=== PATIENT | female | born 1955 | race Caucasian/White ===

== ENCOUNTER 2019-12-31 14:11 | Inpatient (IN) | payer OTHER ==
[~2019-12-31] VITALS: Ht 165.1 cm; Wt 85.0 kg
[~2019-12-31 14:11] MED LIST: ATOR20TA86 PO; FLUT110HFA IH; FLUT16H NASAL; RINGERS SOLUTION,LACTATED 1,000 ML IV ONE
[2019-12-31] MEDS ORDERED: SUGAMMADEX SODIUM 200 MG/2 ML VIAL IVP ONE ×2 (14:12→18:40)
[2019-12-31] MEDS ORDERED: ONDANSETRON HCL 4 MG/2 ML VIAL IVP ONE (14:12)
[2019-12-31] MEDS ORDERED: LIDOCAINE/PF 2% 5 ML VIAL IM ONE (14:12)
[2019-12-31] MEDS ORDERED: FentaNYL CITRATE-PF 100 MCG/2 ML VIAL IVP ONE (14:12)
[2019-12-31] MEDS ORDERED: ALBUTEROL SULFATE HFA 90 MCG/PUFF 8 GM INHALER IH ONE (14:12)
[2019-12-31] MEDS ORDERED: KETAMINE HCL 50 MG/ML 10 ML VIAL IVP ONE (14:12)
[2019-12-31] MEDS ORDERED: SUCCINYLCHOLINE CHLORIDE 20 MG/ML 10 ML VIAL IVP ONE (14:12)
[2019-12-31] MEDS ORDERED: PROPOFOL 1% 20 ML VIAL IVP ONE (14:12)
[2019-12-31] MEDS ORDERED: MIDAZOLAM HCL 2 MG/2 ML VIAL IVP ONE (14:12)
[2019-12-31] MEDS ORDERED: VANCOMYCIN HCL 1 GM/VIAL ONE (14:25)
[2019-12-31] MEDS ORDERED: BACITRACIN 50,000 UNITS/VIAL ONE (14:25)
[2019-12-31] MEDS ORDERED: BUPIVACAINE HCL/PF 0.5% 30 ML VIAL ONE (14:25)
[2019-12-31] MEDS ORDERED: SODIUM CHLORIDE 0.9% 10 ML ONE (14:31)
[2019-12-31 14:54] LABS: GLUCOMETER DEV NAME(LOC) SDS.; GLUCOSE,POINT OF CARE 100 MG/DL (70-110)
[2019-12-31 15:14] LABS: COVID AG,FIA SOURCE NASOPHARYNGEAL
[2019-12-31] MEDS ORDERED: OxyCODONE HCL 5 MG IR TABLET PO PRN ×2 (15:15)
[2019-12-31] MEDS ORDERED: MAG HYDROX/AL HYDROX/SIMETH 30 ML SUSP UDCUP PO PRN (15:15)
[2019-12-31] MEDS ORDERED: ONDANSETRON HCL 4 MG/2 ML VIAL IVP PRN (15:15)
[2019-12-31] MEDS ORDERED: HYDROmorphone 2 MG/ML SYRINGE IVP PRN ×3 (15:15→17:15)
[2019-12-31] MEDS ORDERED: ZOLPIDEM TARTRATE 10 MG TABLET PO PRN (15:15)
[2019-12-31] MEDS ORDERED: BENZOCAINE/MENTHOL LOZENGE PO PRN (15:15)
[2019-12-31] MEDS ORDERED: FentaNYL CITRATE-PF 100 MCG/2 ML VIAL IVP PRN (17:15)
[2019-12-31] MEDS ORDERED: ACETAMINOPHEN 1000 MG/ISO-OSM 100 ML IV ONE (17:15)
[2019-12-31] MEDS ORDERED: MEPERIDINE-PF 25 MG/ML VIAL IVP PRN (17:15)
[2019-12-31] MEDS ORDERED: BUPIVACAINE LIPOSOME/PF 1.3%-13.3MG/ML SUSPENSION 20 ML VIAL INJ ONE (17:15)
[2019-12-31] MEDS ORDERED: RINGERS SOLUTION,LACTATED 1,000 ML IV ONE (18:40)
[2019-12-31] MEDS: OXYGEN THERAPY IH SCH (20:00)
[2019-12-31 21:00] VITALS: BP 135/65
[2019-12-31] MEDS: DOCUSATE SODIUM 100 MG CAPSULE PO SCH (21:03)
[2019-12-31] MEDS: CYCLOBENZAPRINE HCL 10 MG TABLET PO SCH (21:04)
[2019-12-31] MEDS: ACETAMINOPHEN 1000 MG/ISO-OSM 100 ML IV SCH (21:05)
[2019-12-31] MEDS ORDERED: ALBUTEROL SULFATE HFA 90 MCG/PUFF 8 GM INHALER IH PRN (22:30)
[2020-01-01 00:50] VITALS: BP 139/69
[2020-01-01] MEDS: OxyCODONE HCL/ACETAMINOPHEN 5-325 MG TABLET PO PRN ×3 (03:27→20:27)
[2020-01-01] MEDS: ACETAMINOPHEN 1000 MG/ISO-OSM 100 ML IV SCH ×3 (05:10→17:00)
[2020-01-01 07:03] LABS: BASOPHILS % (AUTO) 0.3 % (0.0-2.0); EOSINOPHILS % (AUTO) 0 % (1.0-6.0); HEMATOCRIT 31.4 % (36-46); HEMOGLOBIN 10.6 g/dL (12.0-16.0); LYMPHOCYTES # (AUTO) 0.9 K/uL (1.0-4.8); LYMPHOCYTES % (AUTO) 13.4 % (22.0-44.0); MEAN CORPUSCULAR HGB CONC 33.9 G/dL (31.0-37.0); MEAN CORPUSCULAR VOLUME 89 fL (80-100); MONOCYTES # (AUTO) 0.4 K/uL (0.1-1.0); NEUTROPHILS # (AUTO) 5.4 K/uL (1.8-7.7); NEUTROPHILS % (AUTO) 80.3 % (40.0-70.0); PLATELET COUNT (AUTO) 192 K/uL (150-450); RED BLOOD CELL COUNT(AUTO) 3.54 MIL/uL (4.00-5.20); RED CELL DISTRIBUTION WIDTH 13.7 % (11.5-14.5)
[2020-01-01 07:14] LABS: ANION GAP 8 mmol/L (8-16); CALCIUM, TOTAL 8.2 mg/dL (8.8-10.5); CARBON DIOXIDE 26 mmol/L (22-29); CHLORIDE 108 mmol/L (98-107); CREATININE 0.93 mg/dL (0.60-1.30); GLOMERULAR FILTR. RATE CALC > 60 mL/min (>60); GLUCOSE,RANDOM 136 mg/dL (70-110); POTASSIUM 3.9 mmol/L (3.5-5.1); SODIUM SERUM 142 mmol/L (136-145); UREA NITROGEN, BLOOD 17 mg/dL (7-18)
[2020-01-01] MEDS: OXYGEN THERAPY IH SCH (07:54)
[2020-01-01] MEDS ORDERED: SODIUM CHLORIDE 0.9% 100 ML ONE (07:54)
[2020-01-01] MEDS ORDERED: IOVERSOL 350 MG/ML 100 ML VIAL ONE (07:54)
[2020-01-01 08:26] VITALS: BP 126/55
[2020-01-01] MEDS: DOCUSATE SODIUM 100 MG CAPSULE PO SCH ×2 (08:53→20:27)
[2020-01-01] MEDS: CYCLOBENZAPRINE HCL 10 MG TABLET PO SCH ×3 (08:54→20:27)
[2020-01-01] MEDS: PANTOPRAZOLE SODIUM 40 MG DR TABLET PO SCH (12:17)
[2020-01-01 15:51] VITALS: BP 120/53
[2020-01-01 20:00] VITALS: BP 135/64
[2020-01-01] MEDS: ATORVASTATIN CALCIUM 20 MG TABLET PO SCH (20:27)
[2020-01-01 23:41] VITALS: BP 115/52
[2020-01-02 04:00] VITALS: BP 122/62
[2020-01-02] MEDS: OxyCODONE HCL/ACETAMINOPHEN 5-325 MG TABLET PO PRN ×2 (04:42→20:19)
[2020-01-02 06:51] LABS: BASOPHILS % (AUTO) 0.5 % (0.0-2.0); EOSINOPHILS % (AUTO) 2.3 % (1.0-6.0); HEMATOCRIT 29.3 % (36-46); HEMOGLOBIN 9.8 g/dL (12.0-16.0); LYMPHOCYTES # (AUTO) 1.1 K/uL (1.0-4.8); LYMPHOCYTES % (AUTO) 16.6 % (22.0-44.0); MEAN CORPUSCULAR HEMOGLOBIN 29.9 pg (26.0-34.0); MEAN CORPUSCULAR HGB CONC 33.5 G/dL (31.0-37.0); MEAN CORPUSCULAR VOLUME 89 fL (80-100); MONOCYTES # (AUTO) 0.7 K/uL (0.1-1.0); MONOCYTES % (AUTO) 9.6 % (2.0-9.0); NEUTROPHILS # (AUTO) 4.8 K/uL (1.8-7.7); PLATELET COUNT (AUTO) 161 K/uL (150-450); RED BLOOD CELL COUNT(AUTO) 3.28 MIL/uL (4.00-5.20); RED CELL DISTRIBUTION WIDTH 13.8 % (11.5-14.5)
[2020-01-02 06:52] LABS: ANION GAP 7 mmol/L (8-16); CALCIUM, TOTAL 8.1 mg/dL (8.8-10.5); CARBON DIOXIDE 26 mmol/L (22-29); CHLORIDE 107 mmol/L (98-107); CREATININE 0.74 mg/dL (0.60-1.30); GLOMERULAR FILTR. RATE CALC > 60 mL/min (>60); GLUCOSE,RANDOM 161 mg/dL (70-110); POTASSIUM 3.7 mmol/L (3.5-5.1); SODIUM SERUM 140 mmol/L (136-145); UREA NITROGEN, BLOOD 13 mg/dL (7-18)
[2020-01-02] MEDS: OXYGEN THERAPY IH SCH ×2 (08:00→20:32)
[2020-01-02 08:02] VITALS: BP 115/60
[2020-01-02] MEDS: DOCUSATE SODIUM 100 MG CAPSULE PO SCH ×2 (08:04→20:19)
[2020-01-02] MEDS: PANTOPRAZOLE SODIUM 40 MG DR TABLET PO SCH (08:04)
[2020-01-02] MEDS: CYCLOBENZAPRINE HCL 10 MG TABLET PO SCH ×3 (08:04→20:20)
[2020-01-02] MEDS: SODIUM CHLORIDE 0.9% 1,000 ML IV SCH (13:36)
[2020-01-02 15:30] VITALS: BP 144/74
[2020-01-02] MEDS ORDERED: ACETAMINOPHEN 325 MG TABLET PO PRN (15:30)
[2020-01-02 15:59] VITALS: BP 125/56
[2020-01-02 19:37] VITALS: BP 138/76
[2020-01-02] MEDS: ATORVASTATIN CALCIUM 20 MG TABLET PO SCH (20:20)
[2020-01-03] VITALS (7 sets, daily range): BP systolic 117–147; BP diastolic 64–94
[2020-01-03] MEDS: OxyCODONE HCL/ACETAMINOPHEN 5-325 MG TABLET PO PRN ×3 (00:38→19:56)
[2020-01-03 06:17] LABS: BASOPHILS % (AUTO) 0.3 % (0.0-2.0); EOSINOPHILS % (AUTO) 5.5 % (1.0-6.0); HEMATOCRIT 29.6 % (36-46); HEMOGLOBIN 9.9 g/dL (12.0-16.0); LYMPHOCYTES # (AUTO) 1.8 K/uL (1.0-4.8); LYMPHOCYTES % (AUTO) 26.4 % (22.0-44.0); MEAN CORPUSCULAR HEMOGLOBIN 29.9 pg (26.0-34.0); MEAN CORPUSCULAR HGB CONC 33.4 G/dL (31.0-37.0); MEAN CORPUSCULAR VOLUME 89 fL (80-100); MONOCYTES # (AUTO) 0.6 K/uL (0.1-1.0); MONOCYTES % (AUTO) 9.1 % (2.0-9.0); NEUTROPHILS % (AUTO) 58.7 % (40.0-70.0); PLATELET COUNT (AUTO) 158 K/uL (150-450); RED BLOOD CELL COUNT(AUTO) 3.32 MIL/uL (4.00-5.20); RED CELL DISTRIBUTION WIDTH 13.9 % (11.5-14.5)
[2020-01-03 06:28] LABS: ANION GAP 6 mmol/L (8-16); CALCIUM, TOTAL 8.3 mg/dL (8.8-10.5); CARBON DIOXIDE 28 mmol/L (22-29); CHLORIDE 107 mmol/L (98-107); CREATININE 0.75 mg/dL (0.60-1.30); GLOMERULAR FILTR. RATE CALC > 60 mL/min (>60); GLUCOSE,RANDOM 139 mg/dL (70-110); POTASSIUM 3.8 mmol/L (3.5-5.1); SODIUM SERUM 141 mmol/L (136-145); UREA NITROGEN, BLOOD 12 mg/dL (7-18)
[2020-01-03] MEDS: DOCUSATE SODIUM 100 MG CAPSULE PO SCH ×2 (07:51→20:59)
[2020-01-03] MEDS: PANTOPRAZOLE SODIUM 40 MG DR TABLET PO SCH (07:51)
[2020-01-03] MEDS: CYCLOBENZAPRINE HCL 10 MG TABLET PO SCH ×3 (07:51→21:00)
[2020-01-03] MEDS: SODIUM CHLORIDE 0.9% 1,000 ML IV SCH ×2 (09:47→16:39)
[2020-01-03] MEDS ORDERED: MAGNESIUM CITRATE 300 ML ORAL SOLUTION PO ONE (18:00)
[2020-01-03] MEDS: ATORVASTATIN CALCIUM 20 MG TABLET PO SCH (20:59)
[2020-01-04] MEDS: SODIUM CHLORIDE 0.9% 1,000 ML IV SCH (01:57)
[2020-01-04] MEDS: OxyCODONE HCL/ACETAMINOPHEN 5-325 MG TABLET PO PRN (04:12)
[2020-01-04 05:00] VITALS: BP 129/73
[2020-01-04 06:42] LABS: BASOPHILS % (AUTO) 0.5 % (0.0-2.0); EOSINOPHILS % (AUTO) 8.1 % (1.0-6.0); HEMATOCRIT 28.7 % (36-46); HEMOGLOBIN 9.6 g/dL (12.0-16.0); LYMPHOCYTES # (AUTO) 1.3 K/uL (1.0-4.8); LYMPHOCYTES % (AUTO) 19.3 % (22.0-44.0); MEAN CORPUSCULAR HGB CONC 33.5 G/dL (31.0-37.0); MEAN CORPUSCULAR VOLUME 90 fL (80-100); MONOCYTES # (AUTO) 0.4 K/uL (0.1-1.0); MONOCYTES % (AUTO) 6.6 % (2.0-9.0); NEUTROPHILS # (AUTO) 4.2 K/uL (1.8-7.7); NEUTROPHILS % (AUTO) 65.5 % (40.0-70.0); PLATELET COUNT (AUTO) 173 K/uL (150-450); RED CELL DISTRIBUTION WIDTH 13.5 % (11.5-14.5)
[2020-01-04 06:44] LABS: CREATININE 0.94 mg/dL (0.60-1.30); POTASSIUM 4.3 mmol/L (3.5-5.1)
[2020-01-04] MEDS: CYCLOBENZAPRINE HCL 10 MG TABLET PO SCH (08:00)
[2020-01-04] MEDS: OXYGEN THERAPY IH SCH (08:00)
[2020-01-04] MEDS: PANTOPRAZOLE SODIUM 40 MG DR TABLET PO SCH (08:01)
[2020-01-04] MEDS: DOCUSATE SODIUM 100 MG CAPSULE PO SCH (08:01)
[2020-01-04 08:04] VITALS: BP 129/67
[2020-01-04] MEDS ORDERED: MULTIVITAMINS WITH MINERALS, THERAPEUTIC TABLET PO SCH (09:00)
[2020-01-04 11:11] VITALS: BP 107/60
[2020-01-04] MEDS ORDERED: PERCT PO (13:22)
[2020-01-04] MEDS ORDERED: DOCU-275 PO (13:23)
[2020-01-04] MEDS ORDERED: CYCL10 PO (13:23)
== END 2020-01-04 13:47 | disposition home or self-care (01) | DRG 460 ==
LOC: 6S 14:11 → OBSVTOIN 14:11 → INTOOBSV 14:11
PROVIDERS: ADMIT Neurological Surgery; ATTEND Neurological Surgery
PROC: 0SG00AJ Fusion of Lumbar Vertebral Joint with Interbody Fusion Device, Posterior Approach, Anterior Column, Open Approach (ICD-10-PCS; principal; 2019-12-31 16:15)
DX: M51.16 Intervertebral disc disorders with radiculopathy, lumbar region (principal); E78.5 Hyperlipidemia, unspecified; J45.909 Unspecified asthma, uncomplicated; M51.36 Other intervertebral disc degeneration, lumbar region; I95.9 Hypotension, unspecified; Z20.828 Contact with and (suspected) exposure to other viral communicable diseases
CPT/HCPCS: 72131; 72132; 87081; 87426; 97110; 97116; 97161; 97165; 97530; 97535; C9290; J0131; J0330; J0690; J2250; J2405; J2704; J3010; J3370; J3490; J3535; J7030; J7050; J7120

== ENCOUNTER 2021-08-16 11:00 | Inpatient (IN) | payer OTHER ==
[2021-08-12 15:22] LABS: COVID AG,FIA SOURCE NASOPHARYNGEAL
[~2021-08-16] VITALS: Ht 165.1 cm; Wt 71.8 kg
[~2021-08-16 11:00] MED LIST changes: +BUPIVACAINE HCL/PF 0.5% 30 ML VIAL ONE; +BUPIVACAINE LIPOSOME/PF 1.3%-13.3MG/ML SUSPENSION 20 ML VIAL INJ ONE; +CYCL-448 PO; +DOCU-385 PO; +FLUT110H IH; -FLUT110HFA IH; +PERCT PO; +SODIUM CL IRRIG SOLN BAG 3,000 ML IRRIG ONE; +TRANEXAMIC ACID 1,000 MG in DEXTROSE 5%-WATER 50 ML IV ONE; +VANCOMYCIN HCL 1 GM/VIAL ONE
[2021-08-16] MEDS ORDERED: ONDANSETRON HCL 4 MG/2 ML VIAL IVP ONE ×2 (12:00→16:15)
[2021-08-16] MEDS ORDERED: MIDAZOLAM HCL 2 MG/2 ML VIAL IVP ONE (12:00)
[2021-08-16] MEDS ORDERED: LIDOCAINE/PF 2% 5 ML VIAL IM ONE (12:00)
[2021-08-16] MEDS ORDERED: ROCURONIUM BROMIDE 10 MG/ML 5 ML VIAL IVP ONE (12:00)
[2021-08-16] MEDS ORDERED: KETOROLAC TROMETHAMINE 60 MG/2 ML VIAL IM ONE (12:00)
[2021-08-16] MEDS ORDERED: KETAMINE HCL 50 MG/ML 10 ML VIAL IVP ONE (12:00)
[2021-08-16] MEDS ORDERED: MORPHINE SULFATE/PF 0.5 MG/ML 10 ML AMP IVP ONE (12:00)
[2021-08-16] MEDS ORDERED: DEXAMETHASONE SOD PHOS 4 MG/ML VIAL IVP ONE (12:00)
[2021-08-16] MEDS ORDERED: FentaNYL CITRATE PF 100 MCG/2 ML VIAL IVP ONE (12:00)
[2021-08-16] MEDS ORDERED: PROPOFOL 1% 20 ML VIAL IVP ONE (12:00)
[2021-08-16] MEDS ORDERED: PHENYLEPHRINE HCL 10 MG/ML VIAL IVP ONE (12:00)
[2021-08-16 12:31] LABS: GLUCOMETER DEV NAME(LOC) SDS.; GLUCOSE,POINT OF CARE 103 MG/DL (70-110)
[2021-08-16] MEDS ORDERED: ALBUTEROL SULFATE 2.5 MG/0.5 ML NEB SOLUTION NEB ONE (12:45)
[2021-08-16] MEDS ORDERED: CeFAZolin 2 GM/DEXTROSE 50 ML IV ONE ×2 (13:24→13:30)
[2021-08-16] MEDS ORDERED: SUGAMMADEX SODIUM 200 MG/2 ML VIAL IVP ONE (13:52)
[2021-08-16] MEDS ORDERED: TRANEXAMIC ACID 1,000 MG/10 ML VIAL ONE (13:52)
[2021-08-16] MEDS ORDERED: OxyCODONE HCL/ACETAMINOPHEN 5-325 MG TABLET PO PRN (14:15)
[2021-08-16] MEDS ORDERED: MEPERIDINE-PF 25 MG/ML VIAL IVP PRN (14:15)
[2021-08-16] MEDS ORDERED: HYDROmorphone 2 MG/ML VIAL IM PRN (14:15)
[2021-08-16] MEDS ORDERED: FentaNYL CITRATE PF 100 MCG/2 ML VIAL IVP PRN (14:15)
[2021-08-16] MEDS ORDERED: HYDROmorphone 2 MG/ML VIAL IVP PRN (14:15)
[2021-08-16] MEDS ORDERED: ONDANSETRON HCL 4 MG/2 ML VIAL ONE (16:09)
[2021-08-16] MEDS ORDERED: MEPERIDINE-PF 25 MG/ML VIAL ONE (16:12)
[2021-08-16 17:09] VITALS: BP 155/75
[2021-08-16] MEDS: CYCLOBENZAPRINE HCL 10 MG TABLET PO SCH ×2 (18:02→23:55)
[2021-08-16 22:04] VITALS: BP 165/71
[2021-08-16] MEDS ORDERED: DOCUSATE SODIUM 100 MG CAPSULE PO PRN (22:30)
[2021-08-16] MEDS ORDERED: ACETAMINOPHEN 325 MG TABLET PO PRN (22:30)
[2021-08-16] MEDS ORDERED: ALBUTEROL SULFATE 2.5 MG/0.5 ML NEB SOLUTION NEB PRN (22:30)
[2021-08-16] MEDS ORDERED: BISACODYL 10 MG RECTAL RECTAL SUPPOSITORY PR PRN (22:30)
[2021-08-16] MEDS ORDERED: IPRATROPIUM BROMIDE 0.5 MG/2.5 ML NEB SOLUTION NEB PRN (22:30)
[2021-08-16] MEDS ORDERED: ZOLPIDEM TARTRATE 5 MG TABLET PO PRN (22:30)
[2021-08-16] MEDS ORDERED: MAGNESIUM HYDROXIDE SUSPENSION 30 ML UDCUP PO PRN (22:30)
[2021-08-16] MEDS ORDERED: ONDANSETRON HCL 4 MG/2 ML VIAL IVP PRN (22:30)
[2021-08-16] MEDS ORDERED: SODIUM CHLORIDE 0.9% 500 ML IV ONE (22:48)
[2021-08-16] MEDS: ATORVASTATIN CALCIUM 20 MG TABLET PO SCH (22:52)
[2021-08-16] MEDS: CeFAZolin 2 GM/DEXTROSE 50 ML IV SCH (22:53)
[2021-08-16] MEDS: HYDROCODONE/ACETAMINOPHEN 5-325 MG TABLET PO PRN (22:59)
[2021-08-17 04:48] VITALS: BP 125/51
[2021-08-17] MEDS: CeFAZolin 2 GM/DEXTROSE 50 ML IV SCH (05:54)
[2021-08-17 08:00] VITALS: BP 149/61
[2021-08-17] MEDS: ASPIRIN 81 MG DR TABLET PO SCH (08:00)
[2021-08-17] MEDS: OXYGEN THERAPY IH SCH (08:00)
[2021-08-17] MEDS: FLUTICASONE PROPIONATE 50 MCG/SPRAY 16 GM NASAL SPRAY NASAL SCH (08:36)
[2021-08-17] MEDS: CYCLOBENZAPRINE HCL 10 MG TABLET PO SCH ×3 (08:36→23:11)
[2021-08-17] MEDS: APIXABAN 2.5 MG TABLET PO SCH ×2 (08:36→20:30)
[2021-08-17] MEDS: DOCUSATE SODIUM 100 MG CAPSULE PO SCH ×2 (08:36→20:30)
[2021-08-17] MEDS: HYDROCODONE/ACETAMINOPHEN 5-325 MG TABLET PO PRN ×4 (08:37→20:38)
[2021-08-17] MEDS: PANTOPRAZOLE SODIUM 40 MG/VIAL IVP SCH (08:37)
[2021-08-17 08:59] LABS: BASOPHILS % (AUTO) 0.4 % (0.0-2.0); EOSINOPHILS % (AUTO) 0.4 % (1.0-6.0); HEMATOCRIT 35.5 % (36-46); LYMPHOCYTES # (AUTO) 1.6 K/uL (1.0-4.8); LYMPHOCYTES % (AUTO) 18.8 % (22.0-44.0); MEAN CORPUSCULAR HEMOGLOBIN 30.1 pg (26.0-34.0); MEAN CORPUSCULAR HGB CONC 33.9 G/dL (31.0-37.0); MEAN CORPUSCULAR VOLUME 89 fL (80-100); MONOCYTES # (AUTO) 0.6 K/uL (0.1-1.0); MONOCYTES % (AUTO) 7.6 % (2.0-9.0); NEUTROPHILS % (AUTO) 72.8 % (40.0-70.0); PLATELET COUNT (AUTO) 180 K/uL (150-450); RED BLOOD CELL COUNT(AUTO) 3.99 MIL/uL (4.00-5.20); RED CELL DISTRIBUTION WIDTH 22.3 % (11.5-14.5)
[2021-08-17] MEDS ORDERED: CYCLOBENZAPRINE HCL 10 MG TABLET PO SCH (09:00)
[2021-08-17 15:30] VITALS: BP 129/76
[2021-08-17 20:08] VITALS: BP 145/61
[2021-08-17] MEDS: ATORVASTATIN CALCIUM 20 MG TABLET PO SCH (20:30)
[2021-08-18] MEDS: HYDROCODONE/ACETAMINOPHEN 5-325 MG TABLET PO PRN ×2 (03:51→11:53)
[2021-08-18] MEDS: MORPHINE SULFATE 2 MG/ML SYRINGE IVP PRN ×2 (04:47→08:18)
[2021-08-18 04:53] VITALS: BP 153/64
[2021-08-18] MEDS: ASPIRIN 81 MG DR TABLET PO SCH (07:57)
[2021-08-18] MEDS: OXYGEN THERAPY IH SCH (08:00)
[2021-08-18] MEDS: FLUTICASONE PROPIONATE 50 MCG/SPRAY 16 GM NASAL SPRAY NASAL SCH (08:41)
[2021-08-18] MEDS: PANTOPRAZOLE SODIUM 40 MG/VIAL IVP SCH (08:41)
[2021-08-18] MEDS: CYCLOBENZAPRINE HCL 10 MG TABLET PO SCH (08:42)
[2021-08-18] MEDS: DOCUSATE SODIUM 100 MG CAPSULE PO SCH (08:42)
[2021-08-18] MEDS: APIXABAN 2.5 MG TABLET PO SCH (08:42)
[2021-08-18 11:39] VITALS: BP 162/90
[2021-08-18] MEDS ORDERED: APIX2.5T PO (11:42)
== END 2021-08-18 12:40 | disposition home or self-care (01) | DRG 470 ==
LOC: SURGERY 11:00 → 6S 16:40
PROVIDERS: ADMIT Internal Medicine; ATTEND Internal Medicine
PROC: 0SRC0J9 Replacement of Right Knee Joint with Synthetic Substitute, Cemented, Open Approach (ICD-10-PCS; principal; 2021-08-16 13:25)
DX: M17.11 Unilateral primary osteoarthritis, right knee (principal); Z20.822 Contact with and (suspected) exposure to COVID-19; Z79.899 Other long term (current) drug therapy
CPT/HCPCS: 82962; 85025; 87081; 88300; 93005; 97110; 97116; 97162; 97165; 97530; 97535; C9113; C9290; J0690; J1100; J1885; J2175; J2250; J2270; J2274; J2370; J2405; J2704; J3010; J3370; J3490; J7040; J7060; J7120; Q9967